=== PATIENT | female | born 2000 | race Caucasian/White ===

== ENCOUNTER 2022-04-06 23:00 | Emergency (ER) | payer BC ==
[2022-04-06 23:48] LABS: Absolute Neutrophil Ct (ANC) 5.16 x10^3/uL (1.4-6.9); Basophil (Absolute #) 0.04 x10^3/uL (0-0.4); Eosinophil % 1.1 % (0.00-5.0); Eosinophil (Absolute #) 0.09 x10^3/uL (0-0.5); Lymphocyte (Absolute #) 2.64 x10^3/uL (1.0-4.6); Lymphocytes % 31.6 % (24.0-44.0); Mean Cell Volume 86.6 fL (78-100); Mean Corpuscular Hemoglobin 29.7 pg (26-32); Mean Corpuscular Hgb Concent. 34.3 g/dL (32-36); Monocyte (Absolute #) 0.41 x10^3/uL (0.0-1.3); Monocytes % 4.9 % (0.0-12.0); Neutrophil % 61.7 % (36.0-66.0); Platelet Count 290 x10^3/uL (150-450); Red Blood Count 4.04 x10^6/uL (4.1-5.4); Red Cell Distribution Width 11.4 % (11.5-14.0); White Blood Count 8.4 x10^3/uL (4.0-10.5)
--- NOTE | 2022-04-07 00:13 | ERPHSYRPT ---
- History of Present Illness Time Seen by Provider: 04/06/22 23:06 Historian: patient, family Exam Limitations: no limitations Patient Subjective Stated Complaint: Pt reports she was at a basketball game and started feeling lightheaded, someone checked her heart rate and told her it was initially 154 followed by elevated blood pressure of 150s systolic. Dr Washburn from [facility] recommended she go to ER for EKG, pt has been undergoing treatment for concussion since 02/12/22. Triage Nursing Assessment: Pt alert and oriented x3. Ambulated to ED cot without difficulty. No apparent respiratory distress. Skin w/p/d. S1 and S2 auscultated. Physician History: 21 years old female with history of recent concussion and postconcussion headaches on amitriptyline recent increase in the dose presented in the ER with chief complaint of sudden onset palpitation and lightheadedness while she was at a basketball game setting. Patient heart rate was in 150s and blood pressure was elevated at 150s as well. Reports some pressure sensation/fluttering sensation in the chest which started to ease up. Patient denies any dizziness or lightheadedness right now. No chest pain. Called her primary who recommended to be seen in the ER. EKG showed sinus tach with heart rate in low 100s and blood pressure in 150s systolic. Allergies/Adverse Reactions: No Known Drug Allergies Allergy (Unverified 04/06/22 23:08) Home Medications: Amitriptyline HCl 25 mg [Amitriptyline 25 mg Tablet] 75 mg PO HS 04/06/22 [History] Hx Tetanus, Diphtheria Vaccination/Date Given: Yes Hx Influenza Vaccination/Date Given: Yes Hx Pneumococcal Vaccination/Date Given: No Immunizations Up to Date: Yes Travel Risk - International Travel Have you traveled outside of the country in past 3 weeks: No - Coronavirus Screening Are you exhibiting any of the following symptoms?: No Close contact with a COVID-19 positive Pt in past 14-21 Days: No - Vaccine Status Have you recieved a Covid-19 vaccination: Yes 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[employer]: [employer] - Vaccination Dates Date of 2cond Vaccination (if applicable): 12/11/2020 - Review of Systems Constitutional: Fatigue Eyes: No Symptoms Ears, Nose, & Throat: No Symptoms Respiratory: No Symptoms Cardiac: Palpitations Abdominal/Gastrointestinal: No Symptoms Genitourinary Symptoms: No Symptoms Musculoskeletal: No Symptoms Skin: No Symptoms Neurological: Dizziness Psychological: No Symptoms Endocrine: No Symptoms Hematologic/Lymphatic: No Symptoms Immunological/Allergic: No Symptoms - Past Medical History Pertinent Past Medical History: Yes Respiratory History: Other Other Medical History: concussion, hx of pneumothorax, torn tendon right ankle - Past Surgical History Past Surgical History: Yes Respiratory: Other Other Surgical History: chest tube placement - Social History Smoking Status: Never smoker Exposure to second hand smoke: No Drug Use: none Patient Lives Alone: No - Female History Hx Last Menstrual Period: 03/24/22 Hx Now: (unkn) - Nursing Vital Signs Nursing Vital Signs: Initial Vital Signs Temperature 98.3 F 04/06/22 23:10 Pulse Rate 112 H 04/06/22 23:10 Respiratory Rate 16 04/06/22 23:10 Blood Pressure 154/106 04/06/22 23:10 O2 Sat by Pulse Oximetry 99 04/06/22 23:10 Pain Scale Pain Intensity 0 - Physical Exam General Appearance: no apparent distress, alert, anxiety Eye Exam: PERRL/EOMI, eyes nml inspection Ears, Nose, Throat Exam: normal ENT inspection, TMs normal, pharynx normal, moist mucous membranes Neck Exam: normal inspection, non-tender, supple, full range of motion Respiratory Exam: normal breath sounds, lungs clear Cardiovascular Exam: normal heart sounds, tachycardia Gastrointestinal/Abdomen Exam: soft, normal bowel sounds, No tenderness Back Exam: normal inspection, normal range of motion Extremity Exam: normal inspection, normal range of motion Neurologic Exam: alert, oriented x 3, cooperative, 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 nml as tested, nml cerebellar function, nml station & gait, sensation nml, motor deficits, No normal mood/affect (Anxious) Skin Exam: normal color SpO2 Interpretation: normal SpO2: 99 O2 Delivery: Room Air - Course EKG Interpreted by Me: RATE (102), Sinus Tach, NORMAL AXIS, NORMAL INTERVALS, Non-specific ST Changes Ordered Tests: Active Orders 24 hr Category Date Time Status CHEST 1 VIEW (PORTABLE) Stat Exams 04/06/22 23:54 Taken CHEST WITH CONTRAST [CT] Stat Exams 04/07/22 00:12 Ordered CBC W DIFF Stat Lab 04/06/22 23:46 Completed CK-Creatinine Phosphokinase Stat Lab 04/06/22 23:46 Completed CMP Stat Lab 01/12/23 23:46 Completed D-DIMER QUANTITATIVE Stat Lab 04/06/22 23:46 Completed HCG QUALITATIVE,SERUM Stat Lab 04/06/22 23:46 Completed NT PRO BNP Stat Lab 04/06/22 23:46 Completed TROPONIN Q4H Lab 04/06/22 23:46 Received TROPONIN Q4H Lab 04/07/22 03:45 Ordered TROPONIN Q4H Lab 04/07/22 07:45 Ordered Lab/Rad Data: Laboratory Result Diagrams 04/06/22 23:46 04/06/22 23:46 Laboratory Results 04/06/22 04/06/22 04/06/22 Range/Units 23:46 23:46 23:46 WBC (4.0-10.5) x10^3/uL RBC (4.1-5.4) x10^6/uL Hgb (12.0-16.0) g/dL Hct (35-47) % MCV (78-100) fL MCH (26-32) pg MCHC (32-36) g/dL RDW (11.5-14.0) % Plt Count (150-450) x10^3/uL MPV (7.5-11.0) fL Gran % (36.0-66.0) % Immature Gran % (Auto) (0.00-0.4) % Nucleat RBC Rel Count (0.00-0.1) % Eos # (Auto) (0-0.5) x10^3/uL Immature Gran # (Auto) (0.00-0.03) x10^3u/L Absolute Lymphs (auto) (1.0-4.6) x10^3/uL Absolute Monos (auto) (0.0-1.3) x10^3/uL Absolute Nucleated RBC (0.00-0.01) x10^3u/L Lymphocytes % (24.0-44.0) % Monocytes % (0.0-12.0) % Eosinophils % (0.00-5.0) % Basophils % (0.0-0.4) % Absolute Granulocytes (1.4-6.9) x10^3/uL Basophils # (0-0.4) x10^3/uL D-Dimer 0.85 H* (0.0-0.50) mg/L Sodium 139 (137-145) mmol/L Potassium 3.5 (3.5-5.1) mmol/L Chloride 105 (98-107) mmol/L Carbon Dioxide 26 (22-30) mmol/L Anion Gap 10.8 (5-15) MEQ/L BUN 7 (7-17) mg/dL Creatinine 0.56 (0.52-1.04) mg/dL Estimated GFR > 60.0 ML/MIN Glucose 106 (74-106) mg/dL Calcium 9.2 (8.4-10.2) mg/dL Total Bilirubin 0.40 (0.2-1.3) mg/dL AST 26 (14-36) U/L ALT 16 (0-35) U/L Alkaline Phosphatase 82 (38-126) U/L Creatine Kinase 78 (30-135) U/L NT-Pro-B Natriuret Pep 16.0 (0-450) pg/mL Serum Total Protein 7.0 (6.3-8.2) g/dL Albumin 4.1 (3.5-5.0) g/dL Serum , Qual NEGATIVE (Negative) 04/06/22 Range/Units 23:46 WBC 8.4 (4.0-10.5) x10^3/uL RBC 4.04 L (4.1-5.4) x10^6/uL Hgb 12.0 (12.0-16.0) g/dL Hct 35.0 (35-47) % MCV 86.6 (78-100) fL MCH 29.7 (26-32) pg MCHC 34.3 (32-36) g/dL RDW 11.4 L (11.5-14.0) % Plt Count 290 (150-450) x10^3/uL MPV 11.0 (7.5-11.0) fL Gran % 61.7 (36.0-66.0) % Immature Gran % (Auto) 0.2 (0.00-0.4) % Nucleat RBC Rel Count 0.0 (0.00-0.1) % Eos # (Auto) 0.09 (0-0.5) x10^3/uL Immature Gran # (Auto) 0.02 (0.00-0.03) x10^3u/L Absolute Lymphs (auto) 2.64 (1.0-4.6) x10^3/uL Absolute Monos (auto) 0.41 (0.0-1.3) x10^3/uL Absolute Nucleated RBC 0.00 (0.00-0.01) x10^3u/L Lymphocytes % 31.6 (24.0-44.0) % Monocytes % 4.9 (0.0-12.0) % Eosinophils % 1.1 (0.00-5.0) % Basophils % 0.5 (0.0-0.4) % Absolute Granulocytes 5.16 (1.4-6.9) x10^3/uL Basophils # 0.04 (0-0.4) x10^3/uL D-Dimer (0.0-0.50) mg/L Sodium (137-145) mmol/L Potassium (3.5-5.1) mmol/L Chloride (98-107) mmol/L Carbon Dioxide (22-30) mmol/L Anion Gap (5-15) MEQ/L BUN (7-17) mg/dL Creatinine (0.52-1.04) mg/dL Estimated GFR ML/MIN Glucose (74-106) mg/dL Calcium (8.4-10.2) mg/dL Total Bilirubin (0.2-1.3) mg/dL AST (14-36) U/L ALT (0-35) U/L Alkaline Phosphatase (38-126) U/L Creatine Kinase (30-135) U/L NT-Pro-B Natriuret Pep (0-450) pg/mL Serum Total Protein (6.3-8.2) g/dL Albumin (3.5-5.0) g/dL Serum , Qual (Negative) - Progress Progress: improved, re-examined Air Movement: good Progress Note: 04/07/22 00:34 21 years old is evaluated for sudden onset palpitation and lightheadedness while she was sitting at the basketball game with fluttering sensation in the chest. No focal numbness tingling weakness. Patient was tachycardic with heart rate in 150s and blood pressure in 150s as well. Patient is very anxious on presentation, she is counseled. Heart rate in low 100s and blood pressure started to improve from 1 50-1 30s within few minutes. EKG showed sinus tach with no ST elevation. Negative troponins. Chest x-ray negative for any acute cardiopulmonary findings reviewed by me, official report is pending. Has elevated D-dimers, obtain CTA chest which is negative for PE or any other acute cardiothoracic findings. Patient blood pressure improved without any intervention. This could be secondary to anxiety. Recommended monitoring of heart rate and blood pressure, keep a log and outpatient follow-up. Patient has low heart score, do not think needs any further work-up and is stable for discharge with outpatient follow-up. Discussed signs symptoms of worsening needing return to ER which she seems understanding. Stable for discharge. Blood Culture(s) Obtained: No Antibiotics given: No Counseled pt/family regarding: lab results, diagnosis, need for follow-up, rad results - Departure Departure Disposition: Home Clinical Impression: Palpitations, Elevated blood pressure reading Condition: Stable Critical Care Time: No Referrals: STEFF CASTILLO [Primary Care Provider] - Follow up/PCP as directed (1-2 days for reevaluation) Instructions: Tachycardia (DC) Additional Instructions: Drink plenty of fluids to keep yourself well-hydrated. Monitor your blood pressure regularly, keep a log and follow-up with primary care for reevaluation. Return to ER for having palpitations, chest pain, difficulty breathing persistently high blood pressure with headache, blurry vision etc.
[2022-04-07 00:17] LABS: ALBUMIN 4.1 g/dL (3.5-5.0); ALKALINE PHOSPHATASE 82 U/L (38-126); ANION GAP 10.8 MEQ/L (5-15); BLOOD UREA NITROGEN 7 mg/dL (7-17); CHLORIDE 105 mmol/L (98-107); CK-Creatinine Phosphokinase 78 U/L (30-135); Calcium 9.2 mg/dL (8.4-10.2); Carbon Dioxide 26 mmol/L (22-30); Creatinine 1 0.56 mg/dL (0.52-1.04); EST GLOMERULAR FILTRATION RATE > 60.0 ML/MIN; Glucose 106 mg/dL (74-106); Potassium 3.5 mmol/L (3.5-5.1); SGOT/AST 26 U/L (14-36); SGPT/ALT 16 U/L (0-35); SODIUM 139 mmol/L (137-145)
[2022-04-07 02:06] VITALS: O2SAT 100
[2022-04-07 02:07] VITALS: BP 148/91; PULSE 97
--- NOTE | 2022-04-07 08:56 | XRAY ---
Indication: Palpitations. Comparison: None Portable chest demonstrates normal heart, lungs, and bony thorax.
--- NOTE | 2022-04-07 08:56 | XRAY ---
Indication: Tachycardia and high blood pressure. Elevated d-dimer. Multiple contiguous axial images obtained through the chest using 80 cc Isovue 370 contrast and PE protocol. Comparison: None Good opacification of the pulmonary arteries to include the lobar and segmental branches. No pulmonary embolus. Heart not enlarged. Aorta is normal in course and caliber. Small subcarinal calcified node. No pathologic mediastinal/hilar lymphadenopathy. Lungs demonstrate peripheral left lower lobe calcified subsegmental atelectasis/scarring. No infiltrate, effusion, or pneumothorax. Bony thorax intact. Limited upper abdomen including adrenal glands are unremarkable. Impression: Negative pulmonary embolus. No acute cardiopulmonary abnormalities. Incidental left lower lobe calcified atelectasis/scarring and old granulomatous disease. Comment: Preliminary interpretation made by [facility]. No critical discrepancy.
== END 2022-04-07 02:24 | disposition home or self-care (01) ==
LOC: ED 23:00
DX: R00.2 Palpitations (principal); R03.0 Elevated blood-pressure reading, without diagnosis of hypertension; Z79.899 Other long term (current) drug therapy
CPT/HCPCS: 36000; 36415; 71045; 71260; 80053; 82550; 83880; 84484; 84703; 85025; 85379; 99283

== ENCOUNTER 2023-09-13 10:18 | Day surgery (SDC) | payer BC ==
--- NOTE | 2023-09-12 09:03 | HP ---
HISTORY AND PHYSICAL HISTORY OF PRESENT ILLNESS: Patient is a 22-year-old female who presents with complaints of some right upper quadrant pain radiating to the back for about a month. It is worse when she eats greasy food. She does have nausea, vomiting, and diarrhea. Now, she is currently complaining of pain all the time. She did state that she tried taking an antacid and it did not help. She has been in the ER for this pain in the past. She did have a CT scan that was okay. Her HIDA scan was 58. She did not have any stones on her ultrasound. PAST MEDICAL HISTORY: Hypothyroid, pituitary gland tumor. HOME MEDICATIONS: Synthroid. ALLERGIES: Amitriptyline. PAST SURGICAL HISTORY: Chest tubes for trauma. SOCIAL HISTORY: Negative. FAMILY HISTORY: Lung cancer and ovarian cancer. REVIEW OF SYSTEMS: CONSTITUTIONAL: Denies fever or chills. CHEST: Denies shortness of breath. CVS: Denies chest pain. ABDOMEN: Reports right upper quadrant pain. PHYSICAL EXAMINATION: GENERAL: No acute distress. CVS: Regular rate and rhythm. RESPIRATORY: Nonlabored. No shortness of breath. ABDOMEN: Soft. She was tender in the right upper quadrant. ASSESSMENT: Clinical cholecystitis. PLAN: Laparoscopic cholecystectomy with Dr. Karl Jimenez. This report was dictated for Dr. Jimenez by Devika Cali NP.
[~2023-09-13 10:18] MED LIST: Sensorcaine 0.25% 10 ML ONE
[2023-09-13 10:32] LABS: HCG URINE TEST NEGATIVE (NEGATIVE)
[2023-09-13] MEDS: Lactated Ringers 1,000 ML IV SCH (10:40)
[2023-09-13] MEDS: MEFOXIN 2 GM PREMIX** 2 GM/50 ML ML IV SCH (10:41)
[2023-09-13 10:50] VITALS: RESP 16
[2023-09-13 11:06] LABS: ANION GAP 12.5 MEQ/L (5-15); Calcium 9.1 mg/dL (8.4-10.2); Creatinine 1 0.54 mg/dL (0.52-1.04); EST GLOMERULAR FILTRATION RATE 134.3 ML/MIN; Potassium 4.3 mmol/L (3.5-5.1)
[2023-09-13] MEDS ORDERED: TORAdol 30 mg Injection ONE (13:44)
[2023-09-13] MEDS ORDERED: Decadron 4 MG INJ ONE (13:44)
[2023-09-13] MEDS ORDERED: ROCURONIUM BROMIDE IV ONE (13:44)
[2023-09-13] MEDS ORDERED: SUBLIMAZE 100 MCG/2 ML ONE ×2 (13:44→15:00)
[2023-09-13] MEDS ORDERED: Xylocaine-Mpf 2% 5 Ml Vial ONE (13:44)
[2023-09-13] MEDS ORDERED: OFIRMEV 100 ML IV ONE (13:44)
[2023-09-13] MEDS ORDERED: DIPRIVAN 200 MG/20 ML IV ONE (13:44)
[2023-09-13] MEDS ORDERED: Zofran 4 MG/2 ML VIAL ONE ×2 (13:44→15:10)
[2023-09-13] MEDS ORDERED: BRIDION 200MG/2ML IV ONE (13:44)
[2023-09-13] MEDS ORDERED: Compazine 10 MG/2 ML ONE (15:20)
[2023-09-13] MEDS ORDERED: Hydromorphone 1 mg/ml Injection ONE (15:53)
[2023-09-13] MEDS ORDERED: MORPHINE SULFATE 2 MG INJ ONE (16:01)
[2023-09-13] MEDS ORDERED: Lactated Ringers 1,000 ML IV ONE (16:17)
[2023-09-13 16:35] VITALS: BP 110/63; PULSE 78; TEMP 97.7; O2SAT 96
--- NOTE | 2023-09-14 11:41 | OP ---
SURGERY DATE/TIME: 09/13/2023 PREOPERATIVE DIAGNOSIS: Symptomatic cholelithiasis. POSTOPERATIVE DIAGNOSIS: Symptomatic cholelithiasis. PROCEDURE: Laparoscopic cholecystectomy. SURGEON: Karl Jimenez MD ANESTHESIA: General endotracheal tube. COMPLICATIONS: None. CONDITION: Stable. INDICATIONS: The patient with symptomatic gallbladder disease. DESCRIPTION OF PROCEDURE AND FINDINGS: She was taken to surgery. General anesthetic. Routine prep and drape. Veress needle inserted. Opening pressure of 1. Insufflated for safe viewing. Four 5s. Good visualization. Cystic duct defined. Cystic artery defined. Both structures triply Ligaclipped and transected. Clips totally cross wall approximated. Gallbladder rolled out of the gallbladder fossa. Gallbladder delivered through the upper abdominal port, epigastric port. Field was dry. CO2 exsufflated. Skin closed with 4-0 Vicryl and Steri-Strips. Patient tolerated the procedure satisfactorily.
== END 2023-09-13 16:44 | disposition home or self-care (01) ==
LOC: SDC 10:18
PROVIDERS: ATTEND Surgery
DX: K80.20 Calculus of gallbladder without cholecystitis without obstruction (principal); Z80.1 Family history of malignant neoplasm of trachea, bronchus and lung; Z80.41 Family history of malignant neoplasm of ovary
CPT/HCPCS: 36415; 80048; 81025; 93005; J0694; J1100; J1170; J1885; J2270; J2405; J2704; J3010